=== PATIENT | male | born 1970 | race African-American/Black ===

== ENCOUNTER 2018-03-31 08:32 | Inpatient (IN) | payer OTHER ==
[~2018-03-31] VITALS: Ht 188 cm; Wt 100.2 kg
[2018-03-31] VITALS (7 sets, daily range): BP systolic 147–154; BP diastolic 90–102
--- NOTE | ~2018-03-31 | HC ---
[facility] [place] [address] CONSULTATION Name: EKTA MARISCAL Room #: 240-P ADM IN M.R.#: [id number] Admission: 03/31/18 Attend Phys: Alden Witt MD Discharge: Date of : 72 Report #: [id number] THIS REPORT FOR: //name// CC: FAM unknown Alden Witt MD DATE OF SERVICE: 03/31/2018 HISTORY OF PRESENT ILLNESS: The patient is a 47-year-old male who presented to the Emergency Room today with recurrent nausea, vomiting, coffee ground type emesis. No previous history of GI bleed. He does have a history of alcohol abuse. He has a history of hypertension and diabetes. He denies any NSAID use. He does complain of some midepigastric abdominal pain. He denies any recent melenic stools or hematochezia. The patient's admit hemoglobin was 13.1, BUN of 20. He denies any fevers or chills. No chest pain or shortness of breath. He states his last alcohol use was several days ago. He does state he has taken oxycodone in the past for neuropathic pain, at one point had pneumonia. He denies any significant heartburn symptoms. He denies any dysphagia. He does use Tums on a p.r.n. basis. His weight has been stable recently. PAST MEDICAL HISTORY: Neuropathy, diabetes, hypertension, previous history of pneumonia. ALLERGIES: No known drug allergies. REVIEW OF SYSTEMS: As per HPI. FAMILY HISTORY: Negative for colon cancer or liver disease. SOCIAL HISTORY: He has a long history of alcohol abuse. Denies any tobacco use. As far as his alcohol, he apparently has a couple of pints per day. PHYSICAL EXAMINATION: VITAL SIGNS: Temperature is 98.5, pulse 102, blood pressure 154/92, respiratory rate is 17, O2 sat is 94% on room air. GENERAL: He is alert and oriented x 3, in no acute distress. HEENT: Sclerae nonicteric. Oropharynx clear. NECK: Supple. CARDIOVASCULAR: Regular rhythm, mildly tachycardic. CHEST: Clear to auscultation bilaterally. ABDOMEN: Soft. He is mildly tender to palpation in the midepigastric region. He is mildly distended. EXTREMITIES: No cyanosis, clubbing or edema. LABORATORY DATA: Sodium 137, potassium 4.3, chloride 103, bicarbonate 26, BUN [address] [address] CONSULTATION Name: EKTA MARISCAL Room #: 240-P [facility] IN .R.#: [id number] Admission: 03/31/18 Attend Phys: Alden Witt MD Discharge: Date of : 72 Report #: [id number], creatinine 0.8, glucose 176, calcium 9.3, phosphorus 3.8. Ammonia level 89. Troponin less than 0.06. Alcohol less than 10. Urine drug screen positive for methadone. WBC is 14.1, hemoglobin 13.1, MCV 99.5, platelet count is 187. UA with trace ketones, otherwise negative. There is no imaging. ASSESSMENT AND PLAN: 1. Upper gastrointestinal bleed in a patient with a history of alcohol abuse. No previous history of gastrointestinal bleed. Plan will be to proceed with upper endoscopy today for further evaluation. Protonix drip has been started. I will make further recommendations after endoscopy. 2. Alcohol abuse. Need to watch for alcohol withdrawal. 3. Diabetes. 4. Hypertension. Thank you for allowing me to participate in his care. <ELECTRONICALLY SIGNED> By: Travis Marmolejo MD 03/31/18 1611 1522 1544 Travis Marmolejo MD /nt
--- NOTE | ~2018-03-31 | EKG ---
[address] [place] [place] [address] ELECTROCARDIOGRAM REPORT Name: EKTA MARISCAL Room #: 240-P ADM IN M.R.#: [id number] Admission: 03/31/18 Attend Phys: Alden Witt MD Discharge: Date of : 72 Report #: [id number] THIS REPORT FOR: //name// [facility] ED Test Date: 2018-03-31 Test Time: 09:02:38 Pat Name: EKTA MARISCAL Department: Room: 240 Gender: M Deputy Manager: FREEMAN : 1970 Requested By: Leonid Luna Order Number: [id number] MD: Erik Vee Measurements Intervals [place] Rate: 118 P: 38 TN: 147 QRS: -26 QRSD: 84 T: 22 QT: 342 QTc: 480 Interpretive Statements Sinus tachycardia left atrial enlargement Nonspecific ST-T wave changes A slight wander noted in V5 No previous ECG available for comparison Electronically Signed On 03-31-2018 12:09:08 [employer] by Erik Vee [email or web address] <ELECTRONICALLY SIGNED> By: Erik Vee MD 03/31/18 1209 D: 12/901 1 Erik Vee MD /RYNE
--- NOTE | ~2018-03-31 | P ---
[facility] [place] [address] PROCEDURE REPORT Name: EKTA MARISCAL Room #: 355-P ADM IN M.R.#: [id number] Admission: 03/31/18 Attend Phys: Alden Witt MD Discharge: Date of : 72 Report #: [id number] THIS REPORT FOR: //name// CC: FAM unknown Alden Witt MD DATE OF SERVICE: 03/31/2018 PROCEDURE PERFORMED: Upper endoscopy. HISTORY OF PRESENT ILLNESS: The patient is a 47-year-old male with recent nausea, vomiting and coffee-ground type emesis. He denies any bright red blood per rectum or melena. He has a history of alcohol abuse. No previous history of liver disease or GI bleed. He has a history of diabetes and hypertension. Plan is for upper endoscopy. Admit hemoglobin was 13.1, BUN mildly elevated at 20. DESCRIPTION OF PROCEDURE: The risks and benefits of the procedure were explained to the patient, those risks including, but not limited to, bleeding, perforation, the risk of sedation. He understood these risks and gave informed consent. Sedation was given using propofol per anesthesia. Next, using a standard Olympus upper endoscope, the scope was placed in the patient's mouth and advanced under direct vision through the esophagus, stomach and into the second portion of the duodenum. The upper esophagus was normal. In the mid to distal esophagus, grade 2 esophageal varices were noted. There was no active bleeding. I examined this area very closely multiple times. I did not see a red celeste sign or clot on the varices. The GE junction, otherwise, was normal other than varices. Upon entering the stomach; however, there was a large blood clot throughout the fundus and the body of the stomach with bright red blood noted throughout as well. Multiple washings and aspirations were performed after which I was able to, on retroflexion, view the gastric fundus and there is a possible gastric varix there. No stigmata of recent bleeding. I was not able to clear the stomach from the clot as the clot was very large; therefore, there may be a lesion underneath the clot that could have bled, but this was not able to be visualized. The gastric antrum showed bright red blood, but no active bleeding or mucosal abnormalities. The pylorus was normal and patent. The duodenal bulb, first and second portion had bright red blood, but no ulcerations or signs of bleeding. I spent approximately 30-45 minutes with washing aspirations closely examining all areas and again, due to the clot, I was not able to visualize a large portion of the stomach. At this point, there did not appear to be any new bleeding. At this point, the scope was then withdrawn and the procedure terminated. The patient tolerated the procedure well. IMPRESSION: 1. Grade 2 esophageal varices. No active bleeding. No red celeste signs noted. [address] [address] PROCEDURE REPORT Name: EKTA MARISCAL Room #: 355-P [facility] IN M.R.#: [id number] Admission: 03/31/18 Attend Phys: Alden Witt MD Discharge: Date of : 72 Report #: [id number] 2. Large clot with bright red blood throughout the majority of the stomach as described above. 3. Likely gastric varix in the fundus. No stigmata of bleeding. RECOMMENDATIONS: Etiology of gastrointestinal bleed is unclear, although the patient could have bled from an esophageal varix or even gastric varix, but again, I did not see a clot or red celeste sign in the setting of bright red blood in the stomach. It is possible he has a lesion in the stomach that could not be visualized because of the large clot. At this time, would recommend ICU monitoring, ice chips on a p.r.n. basis, continuing supportive care, continuing PPI drip, monitoring his hemoglobin closely, starting on octreotide drip. We will proceed with full lab liver workup. We will also check INR. We will also proceed with an ultrasound of the abdomen for further evaluation of his liver to rule out the possibility of ascites. I had a long discussion with the patient and his girlfriend today regarding these findings, he understands. We will need to obviously monitor the patient closely. Thank you for allowing me to participate in his care. <ELECTRONICALLY SIGNED> By: Travis Marmolejo MD 04/02/18 1048 1528 Travis Marmolejo MD /nt
[2018-03-31 09:12] LABS: ABSOLUTE NEUTROPHILS 10.7 thou/uL (1.4-8.2); BASOPHILS 0.6 % (0.0-2.0); EOSINOPHILS 0.1 % (0.0-3.0); HEMATOCRIT 39.9 % (42.0-52.0); HEMOGLOBIN 13.1 gm/dL (14.0-18.0); LYMPHOCYTES 15.6 % (24.0-44.0); MCH 32.7 pg (26.0-34.0); MCHC 32.9 g/dL (28.0-37.0); MCV 99.5 fL (80.0-100.0); MONOCYTES 7.8 % (1.0-8.0); PLATELET COUNT 187 thou/uL (150-400); POLYS 75.9 % (36.0-66.0); RBC 4.02 mil/uL (4.50-6.00); RDW 15.1 % (10.5-14.5); WBC 14.1 thou/uL (4.0-11.0)
[2018-03-31 09:22] LABS: ANION GAP 8 mmol/L (7-16); BUN 20 mg/dL (7-18); CALCIUM 9.3 mg/dL (8.5-10.1); CHLORIDE 103 mmol/L (98-107); CO2 26 mmol/L (21-32); CREATININE 0.8 mg/dL (0.7-1.3); GLUCOSE 176 mg/dL (74-106); POTASSIUM 4.3 mmol/L (3.5-5.1); SODIUM 137 mmol/L (136-145)
[2018-03-31 09:23] LABS: TROPONIN-I <0.06 ng/mL (<0.06)
[2018-03-31] MEDS ORDERED: LANTUS100 UNIT/M SUBQ (10:33)
[2018-03-31] MEDS ORDERED: QUINAPRIL-HCTZ1 EACH PO (10:34)
[2018-03-31] MEDS ORDERED: HYDROCHLOROTH12.5 M1 PO (10:34)
[2018-03-31 11:23] LABS: URINE BILIRUBIN NEGATIVE (Negative); URINE BLOOD NEGATIVE (Negative); URINE CLARITY SL CLOUDY; URINE COLOR YELLOW; URINE GLUCOSE-RANDOM* NEGATIVE (Negative); URINE KETONES TRACE (Negative); URINE LEUKOCYTES NEGATIVE (Negative); URINE NITRITE NEGATIVE (Negative); URINE PROTEIN (DIPSTICK) NEGATIVE (Negative); URINE SPECIFIC GRAVITY 1.025 (1.005-1.035); URINE UROBILINOGEN 0.2 E.U./dl (0.2-1.0)
[2018-03-31 11:35] LABS: AMP/METHAMP Negative (Negative); BARBITURATES Negative (Negative); BENZODIAZEPINES Negative (Negative); COCAINE Negative (Negative); METHADONE POSITIVE (Negative); OPIATES Negative (Negative); PCP Negative (Negative)
[2018-03-31 15:55] LABS: HEMATOCRIT 32.4 % (42.0-52.0); HEMOGLOBIN 10.8 gm/dL (14.0-18.0)
[2018-03-31 16:08] LABS: INR 1.4
[2018-03-31 16:12] LABS: ALBUMIN 2.4 g/dL (3.4-5.0); DIRECT BILIRUBIN 0.6 mg/dL (<0.1-0.3); TOTAL BILIRUBIN 1.3 mg/dL (<0.1-1.0); TOTAL PROTEIN 7.3 g/dL (6.4-8.2)
[2018-03-31 16:14] LABS: % SATURATION 95 % (20-39); IRON 221 ug/dL (65-175); TIBC 233 ug/dL (250-450)
[2018-03-31 23:10] LABS: HAV IgM AB (ANTI-HAV IgM) Negative (Negative); HEPATITIS B SURFACE AG Negative (Negative); HEPATITIS C VIRUS AB 0.2 (0.0-0.9); IgG 2155 mg/dL (700-1600)
[2018-04-01] VITALS: BP 127/84
[2018-04-01 01:00] VITALS: BP 145/127
[2018-04-01 01:01] VITALS: BP 155/100
[2018-04-01 05:03] LABS: ABSOLUTE NEUTROPHILS 6.4 thou/uL (1.4-8.2); BASOPHILS 0.7 % (0.0-2.0); EOSINOPHILS 1.1 % (0.0-3.0); HEMATOCRIT 29.2 % (42.0-52.0); HEMOGLOBIN 9.9 gm/dL (14.0-18.0); LYMPHOCYTES 27.4 % (24.0-44.0); MCH 33.8 pg (26.0-34.0); MCV 99.2 fL (80.0-100.0); MONOCYTES 8.7 % (1.0-8.0); PLATELET COUNT 129 thou/uL (150-400); POLYS 62.1 % (36.0-66.0); RBC 2.94 mil/uL (4.50-6.00); RDW 14.9 % (10.5-14.5); WBC 10.3 thou/uL (4.0-11.0)
[2018-04-01 05:12] LABS: CALCIUM 8.1 mg/dL (8.5-10.1); CREATININE 0.7 mg/dL (0.7-1.3); MAGNESIUM 1.6 mg/dL (1.8-2.4); POTASSIUM 4.1 mmol/L (3.5-5.1)
[2018-04-01 05:13] LABS: INR 1.3
[2018-04-01 05:47] LABS: POLYCHROMASIA 1+
[2018-04-01 05:48] LABS: LARGE PLATELETS RARE; TARGET CELLS FEW
[2018-04-01 13:01] VITALS: BP 127/78
[2018-04-01 15:25] LABS: HEMATOCRIT 29.7 % (42.0-52.0)
[2018-04-01 15:30] VITALS: BP 152/97
[2018-04-01 19:42] VITALS: BP 131/85
[2018-04-02 05:00] VITALS: BP 155/105
[2018-04-02 07:30] VITALS: BP 152/103
[2018-04-02 11:18] VITALS: BP 149/90
[2018-04-02 15:43] LABS: HEMATOCRIT 30.2 % (42.0-52.0); HEMOGLOBIN 10.3 gm/dL (14.0-18.0)
[2018-04-02 15:45] VITALS: BP 148/103
[2018-04-02 20:32] VITALS: BP 136/88
[2018-04-03 04:24] VITALS: BP 146/99
[2018-04-03 08:21] VITALS: BP 148/78
[2018-04-03 11:41] VITALS: BP 145/77
[2018-04-03 12:06] LABS: CERULOPLASMIN 22.1 mg/dL (16.0-31.0)
[2018-04-03] MEDS ORDERED: LACTULOSE20 GM/30 M PO (12:09)
[2018-04-03] MEDS ORDERED: AMBIEN 5 MG TABL5 M1 PO (12:09)
[2018-04-03] MEDS ORDERED: PANTOPRAZOLE SO40 M1 PO (12:09)
[2018-04-03] MEDS ORDERED: PRENATAL PO (12:09)
[2018-04-03] MEDS ORDERED: VITAMIN B-1100 M2 PO (12:09)
[2018-04-03 13:06] VITALS: BP 145/77
[2018-04-06 11:08] LABS: ANA INTERPRETATION Negative (Negative)
== END 2018-04-03 13:50 | disposition home or self-care (01) | DRG 368 ==
LOC: ER 08:32 → EROBS 10:33 → ICU 11:39 → 3W 04-01 13:55
PROVIDERS: Emergency Medicine; Nurse Practitioner
PROC: 0DD68ZX Extraction of Stomach, Via Natural or Artificial Opening Endoscopic, Diagnostic (ICD-10-PCS; 2018-03-31)
PROC: 06L38CZ Occlusion of Esophageal Vein with Extraluminal Device, Via Natural or Artificial Opening Endoscopic (ICD-10-PCS; principal; 2018-04-03)
DX: I85.01 Esophageal varices with bleeding (principal); G92 Toxic encephalopathy; E43 Unspecified severe protein-calorie malnutrition; K76.6 Portal hypertension; K72.90 Hepatic failure, unspecified without coma; I86.4 Gastric varices; K31.89 Other diseases of stomach and duodenum; I10 Essential (primary) hypertension; E11.40 Type 2 diabetes mellitus with diabetic neuropathy, unspecified; F10.129 Alcohol abuse with intoxication, unspecified; F17.210 Nicotine dependence, cigarettes, uncomplicated; K70.30 Alcoholic cirrhosis of liver without ascites; E11.65 Type 2 diabetes mellitus with hyperglycemia; Z68.28 Body mass index [BMI] 28.0-28.9, adult; Z71.51 Drug abuse counseling and surveillance of drug abuser; Z79.899 Other long term (current) drug therapy
CPT/HCPCS: 10078; 10779; 10879; 62110; 62900; 70005